=== PATIENT | female | born 1945 | race Caucasian/White ===

== ENCOUNTER 2017-09-05 07:43 | Day surgery (SDC) | payer MEDICARE ==
[2017-09-05] MEDS ORDERED: DIPHENHYDRAMINE HCL 50 MG/ML VIAL ONE (07:44)
[2017-09-05] MEDS ORDERED: NALOXONE HCL INJ/PF 0.4 MG/1 ML SDV ONE (07:44)
[2017-09-05] MEDS ORDERED: ONDANSETRON HCL INJ/PF 4 MG/2 ML SDV ONE (07:44)
[2017-09-05] MEDS ORDERED: FLUMAZENIL INJ 0.5 MG/5 ML VIAL ONE (07:45)
[2017-09-05] MEDS ORDERED: EPINEPHRINE INJ 1 MG/10 ML DISP.SYRIN ONE (07:45)
[2017-09-05] MEDS ORDERED: GLUCAGON,HUMAN RECOMB 1 MG INJ ONE (07:45)
[2017-09-05] MEDS: MIDAZOLAM 2 MG/2 ML INJ ONE ×6 (08:06→08:24)
[2017-09-05] MEDS: FENTANYL CITRATE INJ/PF 100 MCG/2 ML AMPUL ONE ×5 (08:08→08:29)
--- NOTE | 2017-09-05 08:56 | Discharge Summary ---
Discharge Summary (SDC) - Discharge Final Diagnosis: Colon polyps; external hemorrhoids Date of Surgery: 09/05/17 Discharge Date: 09/05/17 Condition: Good Treatment or Instructions: [place] [id number] POST ENDOSCOPY DISCHARGE INSTRUCTIONS 1. Diet: Start clear liquids that a regular diet as tolerated. 2. Resume all preoperative medications. All oral anticoagulants and aspirins can be resumed 24 hours after procedure. 3. If a polypectomy was performed some bleeding per rectum may occur. This should stop within 3 days. If not, please contact the office. 4. If you had a colonoscopy you may experience some bloating and delayed return of normal bowel function for several days, your regular bowel movement pattern should resume within a week. 5. Please contact [facility] at to make an appointment with Dr. Woody for 1 to 3 weeks following procedure. 6. If you have any questions or concerns regarding your care,treatment plan or follow up, please contact our office. 7. Per clinical guidelines we recommend you undergo a repeat colonoscopy in _3_ ____ years. Referrals: CRISTIN GUILLEN MD [Primary Care Provider] - Discharge Diet: As Tolerated Discharge Activity: Activity As Tolerated Home Care Assistance: None Needed Report the Following to Your Physician Immediately: Shortness of Breath, Increase in Pain, Fever over 101 Degrees, Unusual Bleeding
--- NOTE | 2017-09-05 08:59 | Operative Report ---
Operative Report DATE OF SURGERY: 09/05/17 PREOPERATIVE DIAGNOSIS: Screening for colon carcinoma POSTOPERATIVE DIAGNOSIS: Colon polyps 2; external hemorrhoids, edematous OPERATION: 1. Total colonoscopy to cecum. 2. Cecal polypectomy. 3. Left colon polypectomy SURGEON: MASON SMITH ANESTHESIA: Moderate Sedation TISSUE REMOVED OR ALTERED: Polyps 2 COMPLICATIONS: None ESTIMATED BLOOD LOSS: Scant INTRAOPERATIVE FINDINGS: See below PROCEDURE: Obtaining informed consent the patient was taken from the preoperative holding area to the main endoscopy suite where monitoring devices were attached to the patient. Plan and surgical timeout were conducted The patient was placed in the left lateral decubitus position with knees to chest. A perianal examination was performed. There was no visible or palpable anorectal pathology. Sphincter tone was felt to be normal. There were external hemorrhoids edematous and collapsed The flexible adult colonoscope was advanced through the anal rectal canal, all the way to the cecum. Visualization of the cecum was achieved and the ileocecal valve, the appendiceal orifice and transillumination of the anterior abdominal wall. The terminal ileum was cannulated is found to be normal. This was an excellent study on the well-prepped bowel. The colonoscope was withdrawn slowly and methodically checked and the mucosa carefully. There was no evidence of tumor, stricture, bleeding; there was a small sessile 3-4 mm polyp on the cecal brim which was removed using a combination of loop snare and cold forceps polypectomy. It was removed in a piecemeal fashion and submitted a cecal polyp. In the descending colon approximately 50 cm from anal verge was a small 2-3 mm sessile polyp removed with cold forceps device. Bleeding was minimal. There was no evidence of diverticuloses. The scope was slowly withdrawn through the anal rectal canal. Complete visualization of the rectum was achieved with photodocumentation. The scope was withdrawn to the patient's anus. The patient tolerated the procedure well and was taken to the recovery area in stable condition. Per surveillance guidelines, patient be appropriate candidate for follow-up colonoscopy in 3 years, or sooner if symptoms develop.
[2017-09-05 09:45] VITALS: BP 137/63
== END 2017-09-05 09:45 | disposition home or self-care (01) ==
LOC: END 07:43
PROVIDERS: ATTEND Surgery
DX: Z12.11 Encounter for screening for malignant neoplasm of colon (principal); D12.0 Benign neoplasm of cecum; K63.5 Polyp of colon; K64.4 Residual hemorrhoidal skin tags; Z80.0 Family history of malignant neoplasm of digestive organs; I11.9 Hypertensive heart disease without heart failure; K82.8 Other specified diseases of gallbladder; I65.29 Occlusion and stenosis of unspecified carotid artery; F32.9 Major depressive disorder, single episode, unspecified; K21.9 Gastro-esophageal reflux disease without esophagitis; E78.00 Pure hypercholesterolemia, unspecified; M81.0 Age-related osteoporosis without current pathological fracture; R73.09 Other abnormal glucose; L71.9 Rosacea, unspecified; R32 Unspecified urinary incontinence; Z88.2 Allergy status to sulfonamides; Z79.899 Other long term (current) drug therapy
CPT/HCPCS: 45380; 45385; 88305 ×2; J2250; J0171; J3010; J1200; J1610; J2310; J2405; J3490

== ENCOUNTER 2020-02-18 09:26 | Day surgery (SDC) | payer MEDICARE ==
[2020-02-16 09:25] LABS: HEMATOCRIT 43.7 % (36.0-47.0); HEMOGLOBIN 14.6 g/dL (12.0-15.5); MEAN CORPUSCULAR HEMOGLOBIN 30.3 pg (27.0-33.4); MEAN CORPUSCULAR HGB CONC 33.5 g/dL (32.0-36.0); MEAN CORPUSCULAR VOLUME 90 fl (80-97); PLATELET COUNT 250 10^3/uL (150-450); RED BLOOD COUNT 4.83 10^6/uL (3.72-5.28); RED CELL DISTRIBUTION WIDTH 12.7 % (11.5-14.0); WHITE BLOOD COUNT 4.8 10^3/uL (4.0-10.5)
[~2020-02-18 09:26] MED LIST: PROPOFOL INJ 200 MG/20 ML VIAL IV ONE
[2020-02-18] MEDS ORDERED: LIDOCAINE 2% INJ-PF (20 MG/ML) 10 ML AMPUL ONE (10:22)
[2020-02-18] MEDS ORDERED: PROPOFOL INJ 200 MG/20 ML VIAL IV ONE (10:23)
--- NOTE | 2020-02-18 10:58 | Discharge Summary ---
Discharge Summary (SDC) - Discharge Final Diagnosis: 1. Personal history of serrated colon polyp of the cecum 2. Multiple colon polyps Date of Surgery: 02/18/20 Discharge Date: 02/18/20 Condition: Good Forms: EU Anesthesia D/C Instructions, Discharge POC-Surgical Service Treatment or Instructions: [facility] [address] [address] POST ENDOSCOPY DISCHARGE INSTRUCTIONS 1. Diet: Start clear liquids that a regular diet as tolerated. 2. Resume all preoperative medications. All oral anticoagulants and aspirins can be resumed 24 hours after procedure. 3. If a polypectomy was performed some bleeding per rectum may occur. This should stop within 3 days. If not, please contact the office. 4. If you had a colonoscopy you may experience some bloating and delayed return of normal bowel function for several days, your regular bowel movement pattern should resume within a week. 5. Please contact [facility] at to make an appointment with Dr. Woody for 1 to 3 weeks following procedure. 6. If you have any questions or concerns regarding your care,treatment plan or follow up, please contact our office. 7. Per clinical guidelines we recommend you undergo a repeat colonoscopy in 3-5 years. Referrals: MASON WOODY MD [ACTIVE STAFF] - Discharge Diet: As Tolerated Discharge Activity: Activity As Tolerated Home Care Assistance: None Needed Report the Following to Your Physician Immediately: Shortness of Breath, Increase in Pain, Fever over 101 Degrees
--- NOTE | 2020-02-18 11:00 | Operative Report ---
Operative Report DATE OF SURGERY: 02/18/20 PREOPERATIVE DIAGNOSIS: 1. Personal history of serrated polyp of the cecum. 2. External hemorrhoids POSTOPERATIVE DIAGNOSIS: Same with a sending and descending colon polyps OPERATION: 1. Total colonoscopy to cecum with photodocumentation. 2. Cold forceps biopsy of ascending and descending colon polyps SURGEON: MASON SMITH ANESTHESIA: LMAC TISSUE REMOVED OR ALTERED: Polyps of the right and left colon COMPLICATIONS: None ESTIMATED BLOOD LOSS: Scant INTRAOPERATIVE FINDINGS: See below PROCEDURE: Obtaining informed consent the patient was taken from the preoperative holding area to the main endoscopy suite where monitoring devices were attached to the patient. Plan and surgical timeout were conducted The patient was placed in the left lateral decubitus position with knees to chest. A perianal examination was performed. There was no visible or palpable anorectal pathology. Sphincter tone was felt to be normal. Small external hemorrhoids, collapsed. The flexible adult colonoscope was advanced through the anal rectal canal, all the way to the cecum. Visualization of the cecum was achieved by demonstration of the ileocecal valve, the appendiceal orifice and transillumination of the anterior abdominal wall. There was no evidence of a residual polyp seen in the cecum. This was an excellent study on the well-prepped bowel. The colonoscope was withdrawn slowly and methodically checked and the mucosa carefully. There was no evidence of tumor, stricture, bleeding. In the ascending descending colon were 2 polyps, each approximately 2 to 3 mm in transverse diameter, sessile. Photographs taken. Both polyps were removed with a cold forceps device. Bleeding minimal. Specimen sent separately as a sending and descending colon polyps. There was no evidence of diverticuloses. The scope was slowly withdrawn through the anal rectal canal. Complete visualization of the rectum was achieved with photodocumentation. The scope was withdrawn to the patient's anus. The patient tolerated the procedure well and was taken to the recovery area in stable condition. Per surveillance guidelines, patient will be an appropriate candidate for follow-up colonoscopy in [3-5] years pending results of final pathology report.
[2020-02-18 11:47] VITALS: BP 143/55
== END 2020-02-18 11:40 | disposition home or self-care (01) ==
LOC: END 09:26
PROVIDERS: ATTEND Surgery
DX: D12.2 Benign neoplasm of ascending colon (principal); D12.5 Benign neoplasm of sigmoid colon; K64.4 Residual hemorrhoidal skin tags; K52.9 Noninfective gastroenteritis and colitis, unspecified; I11.9 Hypertensive heart disease without heart failure; R32 Unspecified urinary incontinence; K82.8 Other specified diseases of gallbladder; I65.29 Occlusion and stenosis of unspecified carotid artery; M81.0 Age-related osteoporosis without current pathological fracture; Z79.899 Other long term (current) drug therapy; Z20.828 Contact with and (suspected) exposure to other viral communicable diseases; Z86.010 Personal history of colon polyps; Z80.0 Family history of malignant neoplasm of digestive organs; Z98.890 Other specified postprocedural states; Z85.828 Personal history of other malignant neoplasm of skin; F32.9 Major depressive disorder, single episode, unspecified; E78.00 Pure hypercholesterolemia, unspecified
CPT/HCPCS: 45380; 36415; 85027; 88305 ×2; U0003; J2704; J3490; C9803; 87635